=== PATIENT | female | born 1975 | race Caucasian/White ===

== ENCOUNTER → 2023-09-08 10:18 | Outpatient (REF) | payer BC, SELFPAY | LOC: WDC 10:18 | PROVIDERS: ATTENDING PHYSICIAN Physician Assistant Medical | DX: N63.10 Unspecified lump in the right breast, unspecified quadrant (principal); R22.31 Localized swelling, mass and lump, right upper limb; N63.31 Unspecified lump in axillary tail of the right breast | CPT/HCPCS: 76642; 77062; 77066 ==

== ENCOUNTER 2023-10-12 09:44 | Emergency (ER) | payer BC, SELFPAY ==
[2023-10-12 09:53] VITALS: BP 149/86
[2023-10-12 11:34] LABS: % Basophils 0.7 % (0-2); % Eosinophils 0.9 % (0-6); % Immature Granulocytes 0.4 % (0-0.5); % Lymphocytes 24.9 % (20.5-51.1); % Neutrophils 65.1 % (42.2-75.2); Absolute Eosinophils 0.1 10^3/uL (0-0.7); Absolute Lymphocytes 1.3 10^3/uL (1.2-3.4); Absolute Monocytes 0.4 10^3/uL (0.1-0.6); Absolute Neutrophils 3.5 10^3/uL (1.4-6.5); Hematocrit 40.3 % (37.0-47.0); Hemoglobin 13.4 g/dL (12.0-16.0); Mean Corp Hgb Conc. 33.3 g/dL (33.0-37.0); Mean Corpuscular Hgb 32.1 pg (27.0-31.0); Mean Corpuscular Volume 96.4 fL (81.0-99.0); Mean Platelet Volume 9.9 fL (7.4-10.4); Nucleated Red Blood Cells % 0 %; Platelet Count 205 10^3/uL (130-400); Red Blood Cell Count 4.18 10^6/uL (4.20-5.40); Red Cell Dist. Width 11.9 % (11.5-14.5); White Blood Cell Count 5.4 10^3/uL (4.8-10.8)
--- NOTE | 2023-10-12 11:38 | ED.GENMED ---
History of Present Illness
General
Chief Complaint: Abdominal Pain
Source: patient
Time Seen by Provider: 10/12/23 10:56
Travel History
Have you had any contact with someone who has COVID-19?: No
Do you have any symptoms of coronavirus? Fever > 100 degrees, chills, cough, shortness of breath, sore throat, loss of taste or smell, muscle aches, or headache?: No
History of Present Illness
History of Present Illness:
48-year-old female with no significant past medical history presenting to the emergency department at the request of her primary care physician for evaluation of diffuse lower abdominal discomfort/pain that has been ongoing for the last 1 and half
weeks with patient stating pain seems to be a little bit worse on the right side compared to the left as well as noticing an area of swelling within the right inguinal that feels as if there is fluid in that area that worsens when standing. Patient
notes a history of an inguinal hernia on the left side that she followed up with a general surgeon around a year or so ago and ultimately decided to just monitor the hernia and not have this repaired. Patient denies any other symptoms accompanied
with the pain including nausea, vomiting, fevers, urinary symptoms or bowel changes. She does note that over the last few months her menstrual cycle has gotten much heavier in flow and longer in duration. She did see her [employer] CATCHER for this who ordered a
pelvic ultrasound but due to a scheduling conflict patient was not able to get this done but has unfortunately been able to reschedule the appointment.
Past History
Past History
ED Past Medical History: Other (kidney stones) and Other (Kidney stones)
ED Past Surgical History: Urological
Social History
Tobacco: Non-smoker
Alcohol: None
Drug: None
Personal:
Living: with family
Family History
Family History: Other (Father with COPD)
Review of Systems
Review of Systems
All Other Systems: ROS reviewed and negative except as documented in HPI and ROS
Phy Exam
Physical Exam
Physical Exam:
GENERAL: Alert , in no apparent distress
EYE: clear conjunctiva b/l
HEAD: NCAT
ENT: o/p clr, mmm.
ABDOMEN: Soft, mild tenderness over the pubic bone, no r/g, no cvat, negative García sign, no tenderness at McBurney's point, no hernias appreciated
NEUROLOGICAL: Alert and oriented
SKIN: Warm and dry, skin intact.
MUSCULOSKELETAL: No edema, well perfused.
PSYCH: Normal and appropriate interaction.
Scores
Heart Failure Risk
Heart Failure Risk Score: Not Applicable
Heart Score for Chest Pain Patients
STEMI patient?: Not applicable
Withdrawal Assessment of Alcohol
Withdrawal Assessment Completed?: Not applicable
Course
Orders/Labs/Results
Orders:
Orders
10/12/23 11:22
CT Abd/pel W Iv And Oral Contr Urgent
Comment:
Reason For Exam: diffuse lower abd pain
Iohexol [Omnipaque] See Protocol PO NOW STA
Test Result ONCE
US Pelvis Only (non-obstetric) Urgent
Comment:
Reason For Exam: lower abd/pubic pain
10/12/23 11:27
Complete Blood Count/With Diff Urgent
Comprehensive Metabolic Panel Urgent
HCG, Serum Qualitative Screen Urgent
Lipase Urgent
10/12/23 13:45
Urinalysis Reflex To Culture Urgent
Date Specimen was Collected: 10/12/23
Time Specimen was Collected: 13:45
Abnormal Lab Results
10/12/23
11:27
RBC 4.18 L 10^6/uL
(4.20-5.40)
MCH 32.1 H pg
(27.0-31.0)
10/12/23 11:27
10/12/23 11:27
Vital Signs
Initial and Last Documented VS:
Initial Vital Signs
Temp Pulse Resp BP Pulse Ox
98.4 F 70 20 149/86 100
10/12/23 09:53 10/12/23 09:53 10/12/23 09:53 10/12/23 09:53 10/12/23 09:53
Last Documented Vital Signs
Temp Pulse Resp BP Pulse Ox
98.4 F 62 16 112/74 99
10/12/23 09:53 10/12/23 14:44 10/12/23 12:37 10/12/23 14:44 10/12/23 12:37
MDM/Problems Addressed
Differential Diagnosis Includes:
Ovarian cyst, fibroids, hernia, core muscle strain, less concern for an acute surgical abdomen
MDM/Problems Addressed:
48-year-old female present emergency department for evaluation of diffuse lower abdominal pain, right greater than left, symptoms thought to be potentially related to a hernia. Primary care sent patient to the ER for imaging. History and exam
could potentially be either intra-abdominal source versus genitourinary. Labs and urinalysis ordered. Will obtain a CT and ultrasound to try and help identify source of patient's symptoms
*Radiology
Radiology exam reviewed: radiology read reviewed
*Pulse Oximetry
Patient hypoxic: no
*Critical Care Note
Total Time (30-74mins, 75-104mins- exclusive of procedures): Not Applicable
Patient Management
Escalation/DeEscalation of care consider admission/obs:
Patient's imaging is unremarkable for any acute pathologies. CT of the abdomen pelvis did show possible constipation and advised patient she can try and increase fiber intake and use a stool softener as needed. Encouraged follow-up with her
primary care provider as an outpatient as well as [employer]. Aware of return precautions. Stable for discharge home.
ED Attending Note
-
Portions of this chart may have been created with voice recognition software.� Occasional wrong word or��sound alike� substitutions may have occurred due to the inherent limitations of voice recognition software.
Discharge Plan
Departure
Patient Disposition: Home (Routine Discharge)
Date of Disposition: 10/12/23
Time of Disposition: 14:39
Patient with high blood pressure during this ER visit?: Yes
Discharge Problem:
Abdominal pain
Instructions: Abdominal Pain
Prescriptions:
No Action
TABLET
tramadol [Ultram] 50 MG tablet
50 mg PO Q6HPRN PRN (Reason: severe pain) Qty: 8 0RF
Referrals:
Tanisha Gómez PA-C [Family Provider] -
Interventions
Interventions:
*Risk Screen - Suicide Last Done: 10/12/23 09:53
*General Assessment Last Done: 10/12/23 09:53
*Neglect/Abuse Screening Last Done: 10/12/23 09:53
*ED COVID-19 Vaccine History Last Done: 10/12/23 11:17
EE-Lfraud-Kkrfzfoqqx Assessment Last Done: 10/12/23 11:31
[2023-10-12] MEDS: OMNIPAQUE 50 ML PO (11:47)
[2023-10-12 11:52] LABS: HCG, Serum Qualitative Screen Negative
[2023-10-12 11:55] LABS: ALT (SGPT) 17 U/L (0-35); AST (SGOT) 23 U/L (14-36); Albumin 3.8 g/dl (3.5-5.0); Alkaline Phosphatase 48 U/L (38-126); Blood Urea Nitrogen 12 mg/dl (7-17); Calcium 9.2 mg/dl (8.4-10.2); Carbon Dioxide 27 mmol/L (22-30); Chloride 107 mmol/L (98-107); Glucose 78 mg/dl (70-99); Lipase 66 U/L (23-300); Potassium 4.5 mmol/L (3.5-5.1); Sodium 135 mmol/L (135-145); Total Bilirubin 0.5 mg/dl (0.2-1.3); Total Protein 6.3 g/dl (6.3-8.2); eGFR > 60.00
[2023-10-12 12:37] VITALS: BP 138/74
[2023-10-12 13:56] LABS: Urine Albumin Negative (Neg - Trace); Urine Bilirubin Negative (Negative); Urine Character Clear (Clear); Urine Color Yellow; Urine Glucose Negative (Negative); Urine Ketone Negative (Negative); Urine Leukocyte Negative (Negative); Urine Nitrite Negative (Negative); Urine Occult Blood Negative (Negative); Urine Specific Gravity 1.015 (<1.030); Urine Urobilinogen Negative (Neg - 1+)
[2023-10-12 14:44] VITALS: BP 112/74
[2023-10-12 15:06] VITALS: BP 112/74
== END 2023-10-12 15:07 | disposition home or self-care (01) ==
LOC: EMR 09:44
PROVIDERS: Physician Assistant Medical; EMERGENCY PHYSICIAN Student in an Organized Health Care Education/Training Program; FAMILY PHYSICIAN Physician Assistant Medical
DX: R10.30 Lower abdominal pain, unspecified (principal); R03.0 Elevated blood-pressure reading, without diagnosis of hypertension
CPT/HCPCS: 99285; 74177; 76856; 80053; 81003; 83690; 84703; 85025; Q9967

== ENCOUNTER 2024-12-28 13:06 | Emergency (ER) | payer BC, SELFPAY ==
[2024-12-28 13:08] VITALS: BP 162/98
[2024-12-28 13:29] LABS: % Basophils 0.6 % (0-2); % Eosinophils 0.3 % (0-6); % Immature Granulocytes 0.2 % (0-0.5); % Lymphocytes 17.7 % (20.5-51.1); % Monocytes 5.7 % (1.7-9.3); % Neutrophils 75.5 % (42.2-75.2); Absolute Lymphocytes 1.1 10^3/uL (1.2-3.4); Absolute Monocytes 0.4 10^3/uL (0.1-0.6); Absolute Neutrophils 4.8 10^3/uL (1.4-6.5); Hematocrit 44.9 % (37.0-47.0); Mean Corp Hgb Conc. 33.4 g/dL (33.0-37.0); Mean Corpuscular Hgb 32.9 pg (27.0-31.0); Mean Corpuscular Volume 98.5 fL (81.0-99.0); Mean Platelet Volume 10.1 fL (7.4-10.4); Nucleated Red Blood Cells % 0 %; Platelet Count 222 10^3/uL (130-400); Red Blood Cell Count 4.56 10^6/uL (4.20-5.40); White Blood Cell Count 6.3 10^3/uL (4.8-10.8)
[2024-12-28 13:53] LABS: ALT (SGPT) 18 U/L (0-35); AST (SGOT) 20 U/L (14-36); Albumin 4.2 g/dl (3.5-5.0); Alkaline Phosphatase 43 U/L (38-126); Blood Urea Nitrogen 15 mg/dl (7-17); Calcium 9.5 mg/dl (8.4-10.2); Carbon Dioxide 30 mmol/L (22-30); Chloride 106 mmol/L (98-107); Glucose 117 mg/dl (70-99); Potassium 4.4 mmol/L (3.5-5.1); Sodium 139 mmol/L (135-145); Total Bilirubin 0.7 mg/dl (0.2-1.3); eGFR > 60.00
[2024-12-28 14:10] LABS: Troponin I < 0.012 ng/ml
--- NOTE | 2024-12-28 15:09 | ED.GENMED ---
History of Present Illness
General
Chief Complaint: Chest Pain
Time Seen by Provider: 12/28/24 15:09
History of Present Illness
History of Present Illness:
TIME OF INITIAL ENCOUNTER: 3:15 PM
HPI: Had L sided chest pain 'the size of a nickel', but more recently pain moved to the right side. Under a lot of stress. Takes no meds. No significant cardiac risk factors. She states that she went to her primary care doctor who did an EKG
and told her to come here for further evaluation. She has no family history of premature coronary artery disease in first-degree relatives.
EXAM:
GENERAL: Well appearing in no distress
HEENT: Moist oral mucosa
CARDIOVASCULAR: No murmurs, normal heart rate, regular rhythm, mild anterior chest wall tenderness on the right side
PULMONARY: No respiratory distress, breath sounds are clear and equal
ABDOMEN: Soft with no peritoneal signs, no tenderness
NEUROLOGIC: Excellent strength all extremities, no coordination deficits
PSYCHIATRIC: Appropriate mental status, normal insight and judgement
EXTREMITIES: Nontender, no edema, moves all extremities equally
SKIN: No rash, no lesions
NUMBER AND COMPLEXITY OF PROBLEMS ADDRESSED AT THE ENCOUNTER
� Chronic conditions affecting care: Has had kidney stones
� Acute Exacerbation and/or Progression of Chronic Illness: This is an acute problem
� Differential Diagnosis includes: Stress/anxiety, costochondritis, ACS, pneumonia
AMOUNT AND/OR COMPLEXITY OF DATA TO BE REVIEWED AND ANALYZED
� I performed an independent evaluation of and my interpretation is:
EKG: Sinus 68, normal axis, no acute ST abnormality
CT:
X-rays: Chest x-ray shows no acute abnormality
Laboratory Studies: Troponin and basic labs unremarkable
Other:
� Review of other/old records: Patient had CT of the abdomen pelvis last year which was relatively unremarkable
� Clinical information was obtained by an independent historian: None needed
� Prescriptions/Medications Considered but not given:
� Further testing considered but not performed:
RISK OF COMPLICATIONS AND/OR MORBIDITY OR MORTALITY OF PATIENT MANAGEMENT
� Social determinants of health affecting care: Lives at home, is a runner
� Discussion with other providers:
� Escalation of care including admission/observation vs risk of discharge considered: Symptoms may be related to stress/anxiety. Unremarkable ED workup. No PE or cardiac risk factors.
ANY OTHER UPDATES:
4:40 PM: The patient appears very comfortable on reassessment. Encouraged to follow-up with Dr. MELISA Mccabe.
Past History
Past History
ED Past Medical History: Other (kidney stones) and Other (Kidney stones)
ED Past Surgical History: Urological
Social History
Tobacco: Non-smoker
Alcohol: None
Drug: None
Personal:
Living: with family
Family History
Family History: Other (Father with COPD)
Phy Exam
Physical Exam
Physical Exam:
See HPI
Scores
Heart Score for Chest Pain Patients
STEMI patient?: Not applicable
Course
Orders/Labs/Results
Orders:
Orders
12/28/24 13:07
ECG [Electrocardiogram (*1)] Urgent
Reason for Study: Chest Pain
EKG- Treatment ONCE
12/28/24 13:21
Complete Blood Count/With Diff Urgent
Comprehensive Metabolic Panel Urgent
Troponin I Urgent
12/28/24 15:11
CR Chest - 2 Views Urgent
Comment:
Reason For Exam: R CP
Abnormal Lab Results
12/28/24
13:21
MCH 32.9 H pg
(27.0-31.0)
Absolute Lymphs (auto) 1.1 L 10^3/uL
(1.2-3.4)
Neutrophils % 75.5 H %
(42.2-75.2)
Lymphocytes % 17.7 L %
(20.5-51.1)
Glucose 117 H mg/dl
(70-99)
12/28/24 13:21
12/28/24 13:21
Vital Signs
Initial and Last Documented VS:
Initial Vital Signs
Temp Pulse Resp BP Pulse Ox
36.6 C 74 18 162/98 100
12/28/24 13:08 12/28/24 13:08 12/28/24 13:08 12/28/24 13:08 12/28/24 13:08
Last Documented Vital Signs
Temp Pulse Resp BP Pulse Ox
36.6 C 71 18 124/86 98
12/28/24 13:08 12/28/24 16:40 12/28/24 13:08 12/28/24 16:40 12/28/24 16:40
*Critical Care Note
Total Time (30-74mins, 75-104mins- exclusive of procedures): Not Applicable
ED Attending Note
-
Portions of this chart may have been created with voice recognition software.� Occasional wrong word or��sound alike� substitutions may have occurred due to the inherent limitations of voice recognition software.
Discharge Plan
Departure
Patient Disposition: Home (Routine Discharge)
Date of Disposition: 12/28/24
Time of Disposition: 16:31
Patient with high blood pressure during this ER visit?: Yes
Discharge Problem:
Chest pain
Instructions: Chest Pain DCA Follow Up, BLOOD PRESSURE
Prescriptions:
No Action
TABLET
tramadol [Ultram] 50 MG tablet
50 mg PO Q6HPRN PRN (Reason: severe pain) Qty: 8 0RF
Referrals:
Tanisha Gómez PA-C [Family Provider, Family Practice]
Activity Restrictions/Additional Instructions:
The cause of your chest pain is unclear. Cardiac blood work and EKG are normal. I recommend that you follow-up with a dental insurance biller such as Dr. MELISA Mccabe.
Interventions
Interventions:
*Risk Screen - Suicide Last Done: 12/28/24 13:08
*Neglect/Abuse Screening Last Done: 12/28/24 13:08
ED- Cardiac Assessment Last Done: 12/28/24 16:00
Discharge Date and Time
Print Language: AMHARIC
[2024-12-28 16:40] VITALS: BP 124/86
== END 2024-12-28 18:04 | disposition home or self-care (01) ==
LOC: EMR 13:06
PROVIDERS: EMERGENCY PHYSICIAN Emergency Medicine; FAMILY PHYSICIAN Physician Assistant Medical
DX: R07.89 Other chest pain (principal); Z87.442 Personal history of urinary calculi
CPT/HCPCS: 99283; 71046; 80053; 84484; 85025; 93005